=== PATIENT | female | born 1950 | race Hispanic/Latino ===

== ENCOUNTER 2019-12-11 08:18 | Observation (INO) | payer OTHER ==
[2019-12-09 13:35] VITALS: BP 155/61
[~2019-12-11] VITALS: Ht 160 cm; Wt 74.8 kg
[2019-12-11] VITALS (23 sets, daily range): BP systolic 118–167; BP diastolic 57–90
[~2019-12-11 08:18] MED LIST: MELO-106 PO
[2019-12-11] MEDS: VANCOMYCIN 1GM+NS 250ML 250 ML IV SCH ×3 (08:45→20:54)
[2019-12-11] MEDS: CEFAZOLIN SODIUM 1 GM VIAL IVP SCH ×3 (09:00→20:03)
[2019-12-11] MEDS ORDERED: ACETAMINOPHEN EXTRA STRENGTH 500 MG TABLET ONE (09:03)
[2019-12-11] MEDS ORDERED: LACTATED RINGERS 1000ML 1,000 ML IV ONE (09:03)
[2019-12-11] MEDS ORDERED: CELECOXIB 200 MG CAP ONE (09:03)
[2019-12-11] MEDS ORDERED: METOCLOPRAMIDE 10 MG/2 ML VIAL ONE (09:03)
[2019-12-11] MEDS ORDERED: KETOROLAC TROMETHAMINE 15MG/ML ONE (09:03)
[2019-12-11 09:11] LABS: APPEARANCE,URINE Cloudy (CLEAR); BILIRUBIN,URINE Negative (NEGATIVE); COLOR,URINE Yellow (YELLOW); GLUCOSE, URINE (UA) Negative (NEGATIVE); KETONES,URINE Negative (NEGATIVE); LEUKOCYTE ESTERASE ,URINE Moderate (NEGATIVE); NITRATE,URINE Negative (NEGATIVE); OCCULT BLOOD,URINE Trace (NEGATIVE); PROTEIN,URINE Negative (NEGATIVE)
[2019-12-11 09:33] LABS: BACTERIA,URINE Few /HPF (None Seen); MUCUS,URINE Few LPF (None Seen); RBC,URINE 0-1 /HPF (0-1); SQUAMOUS EPITHELIAL CELL,UR Moderate /HPF (0-2)
[2019-12-11 09:40] LABS: INR 0.95 (0.85-1.15)
[2019-12-11] MEDS ORDERED: ROPIVACAINE 0.5% 5MG/ML 30ML IJ ONE (09:50)
[2019-12-11] MEDS ORDERED: PROPOFOL 10 MG/ML 20ML VIAL IV ONE (09:54)
[2019-12-11] MEDS ORDERED: ROCURONIUM 10MG/1ML SYR 10 MG/ML ML ONE (09:54)
[2019-12-11] MEDS ORDERED: LIDOCAINE PF 2% 5ML ABBOJECT ONE (09:54)
[2019-12-11] MEDS ORDERED: DEXAMETHASONE SOD PHOSPHATE 10MG/ML 1ML VIAL ONE (09:54)
[2019-12-11] MEDS ORDERED: ONDANSETRON HCL 4 MG/2 ML VIAL ONE ×3 (09:54→15:54)
[2019-12-11] MEDS ORDERED: MIDAZOLAM HCL 1 MG/ML 2ML VIAL ONE (09:54)
[2019-12-11] MEDS ORDERED: FENTANYL CITRATE PF 50 MCG/1 ML 5ML AMP IV ONE (09:54)
[2019-12-11] MEDS ORDERED: LEVOFLOXACIN 500 MG/D5W 100 ML 100 ML ONE (10:00)
[2019-12-11] MEDS ORDERED: TRANEXAMIC ACID 1000MG/10ML ONE ×2 (12:14→15:31)
[2019-12-11] MEDS ORDERED: CEFAZOLIN SODIUM 1 GM VIAL ONE ×2 (12:43→12:49)
[2019-12-11] MEDS ORDERED: FENTANYL CITRATE PF 50 MCG/1 ML 2ML VIAL ONE (14:08)
[2019-12-11] MEDS ORDERED: GLYCOPYRROLATE 1 MG/5 ML SYRINGE ONE (14:36)
[2019-12-11] MEDS ORDERED: NEOSTIGMINE 5MG/5ML SYR IV ONE (14:37)
[2019-12-11] MEDS ORDERED: TRAMADOL HCL 50 MG TABLET PO PRN (15:00)
[2019-12-11] MEDS ORDERED: CALCIUM CARBONATE 500 MG TABLET PO PRN (15:00)
[2019-12-11] MEDS ORDERED: POTASSIUM CHLORIDE 20MEQ/100ML 100 ML IV PRN (15:00)
[2019-12-11] MEDS ORDERED: KETOROLAC TROMETHAMINE 15MG/ML IV PRN (15:00)
[2019-12-11] MEDS ORDERED: DiphenhydrAMINE HCL 50 MG/ML VIAL IVP PRN (15:00)
[2019-12-11] MEDS ORDERED: LIDOCAINE HCL-MPF 1% 2ML VIAL IV PRN (15:00)
[2019-12-11] MEDS ORDERED: TEMAZEPAM 15 MG CAPSULE PO PRN (15:00)
[2019-12-11] MEDS ORDERED: OXYCODONE HCL 5 MG TAB PO PRN ×2 (15:00)
[2019-12-11] MEDS: ACETAMINOPHEN EXTRA STRENGTH 500 MG TABLET PO SCH ×2 (15:00→23:25)
[2019-12-11] MEDS ORDERED: FERROUS FUMARATE 324 MG TABLET PO PRN (15:00)
[2019-12-11] MEDS ORDERED: ONDANSETRON HCL 4 MG/2 ML VIAL IVP PRN (15:00)
[2019-12-11] MEDS ORDERED: POTASSIUM CHLORIDE 10% ELIXIR 20 MEQ/15 ML UDCUP PO PRN (15:00)
[2019-12-11] MEDS ORDERED: MEPERIDINE-PF 25 MG/ML SYG ONE (15:40)
[2019-12-11] MEDS: SODIUM CHLORIDE 0.9% 1000ML 1,000 ML IV SCH (16:27)
--- NOTE | 2019-12-11 20:00 | NUR ---
PATIENT RECEIVED IN BED, AAOX3, NO ACUTE DISTRESS NOTED. POST LEFT TKA TODAY, JEANINE WRAP WITH CHRISTY DRESSING D/I. POC DISCUSSED WITH PATIENT. INCENTIVE SPIROMETRY ENCOURAGED WHILE AWAKE. PATIENT VOICED AGREEMENT. INSTRUCTED TO CALL FOR ASSISTANCE IF NEEDED. CALL HAN PLACED WITHIN REACH. WILL CONT TO MONITOR CLOSELY.
[2019-12-11] MEDS: CELECOXIB 200 MG CAP PO SCH (20:03)
[2019-12-11] MEDS: ASPIRIN 81MG TAB.CHEW PO SCH (20:03)
[2019-12-11] MEDS: PREGABALIN 25 MG CAP PO SCH (20:03)
[2019-12-11] MEDS: FAMOTIDINE 20MG TAB 20 MG TAB PO SCH (20:53)
[2019-12-12] MEDS: SODIUM CHLORIDE 0.9% 1000ML 1,000 ML IV SCH (00:55)
[2019-12-12 03:28] VITALS: BP 109/58
[2019-12-12 03:56] LABS: HEMATOCRIT 28.9 % (36-48); MEAN CORPUSCULAR HEMOGLOBIN 30.3 pg (27.0-33.0); MEAN CORPUSCULAR HGB CONC 33.6 g/dL (32.0-36.0); MEAN CORPUSCULAR VOLUME 90.3 fL (79-99); PLATELET COUNT (AUTO) 206 K/uL (130-400); RED CELL DISTRIBUTION WIDTH 12.9 % (11.0-15.5); WHITE BLOOD COUNT (AUTO) 10.6 K/uL (4.8-10.8)
[2019-12-12 04:08] LABS: CREATININE 0.9 mg/dL (0.5-1.5); POTASSIUM 3.7 mmol/L (3.5-5.1)
[2019-12-12] MEDS: POTASSIUM CHLORIDE 20 MEQ ERTAB PO PRN ×2 (04:22→06:26)
[2019-12-12] MEDS: CEFAZOLIN SODIUM 1 GM VIAL IVP SCH (04:22)
[2019-12-12] MEDS: ACETAMINOPHEN EXTRA STRENGTH 500 MG TABLET PO SCH ×2 (06:27→15:00)
[2019-12-12 07:49] VITALS: BP 117/58
[2019-12-12] MEDS: FAMOTIDINE 20MG TAB 20 MG TAB PO SCH (08:52)
[2019-12-12] MEDS: ASPIRIN 81MG TAB.CHEW PO SCH (08:52)
[2019-12-12] MEDS: PREGABALIN 25 MG CAP PO SCH (08:52)
[2019-12-12] MEDS: CELECOXIB 200 MG CAP PO SCH (08:53)
[2019-12-12] MEDS: VANCOMYCIN 1GM+NS 250ML 250 ML IV SCH (08:53)
[2019-12-12] MEDS ORDERED: LEVOFLOXACIN 500 MG TABLET PO SCH (09:00)
[2019-12-12] MEDS ORDERED: MELOXICAM 7.5 MG TABLET PO SCH (09:00)
[2019-12-12] MEDS ORDERED: POLYETHYLENE GLYCOL 3350 17 GM POWD.PACK PO SCH (09:00)
[2019-12-12 11:11] VITALS: BP 130/62
--- NOTE | 2019-12-12 11:25 | NUR ---
CM NOTE NEW ORDER FOR [facility], ODALYS OBTAINED. CLINICALS AND PAS[facility] FAXED AND RECEIVED. SITA CALLED, TO SEE PATIENT AND SUBMIT TO INSURANCE TODAY. WILL FOLLOW UP ACCORDINGLY.
[2019-12-12] MEDS ORDERED: ASPI-1005 PO (13:38)
[2019-12-12] MEDS ORDERED: HYDR-4457 PO (13:38)
[2019-12-12] MEDS ORDERED: MACR100 PO (13:43)
--- NOTE | 2019-12-12 15:21 | NUR ---
INITIAL Patient lives with granddaughter, Suzette Oviedo, [phone]. No home services. DME: walker with seat, shower chair. Patient is able to complete ADL's independently and drives. PCP is Dr. Rajan. Pharmacy is [facility] in [place]. DCP is home. Addendum: 12/12/19 at 1525 by NAREN HENLEY SS Amended: Links added.
--- NOTE | 2019-12-12 15:55 | NUR ---
CM NOTE WELL SITA AT [facility], AUTHORIZATION RECEIVED FOR [facility], PRIMARY NURSE, FER CASH, MADE AWARE.
--- NOTE | 2019-12-12 16:20 | NUR ---
[id number] patient signed MÉNDEZ Letter, I faxed MÉNDEZ Letter to [id number] and placed in chart under consent tab
--- NOTE | 2019-12-12 17:25 | NUR ---
INSTRUCTIONS DISCHARGE INSTRUCTIONS GIVEN TO PATIENT USING TEACH BACK. IV REMOVED WITH TIP INTACT. DIRECT PRESSURE APPLIED UNTIL BLEEDING CONTROLLED THEN SITE COVERED WITH GAUZE AND SECURED WITH A BAND-AID. F/U APPOINTMENT MADE. REPORT CALLED TO [facility] RESIDENTIAL STAFF. NEW PRESCRIPTIONS PLACED IN PACKET GOING TO RESIDENTIAL. ALL PRINTED INFORMATION AND MD INSTRUCTIONS PLACED IN PATIENT'S DISCHARGE PACKET. NO QUESTIONS OR CONCERNS VOICED. PENDING ARRIVAL OF [facility] FOR TRANSPORT.
[2019-12-14] MEDS ORDERED: BISACODYL 10 MG SUPP.RECT RC PRN (15:00)
== END 2019-12-12 18:14 ==
LOC: DAH 08:18 → DAHIP 08:19 → 4AH 16:14
PROVIDERS: ADMIT Orthopaedic Surgery; ATTEND Orthopaedic Surgery
DX: M17.12 Unilateral primary osteoarthritis, left knee (principal); M21.00 Valgus deformity, not elsewhere classified, unspecified site; I10 Essential (primary) hypertension; F32.9 Major depressive disorder, single episode, unspecified
CPT/HCPCS: 27447; 36415 ×2; 80048; 81001; 85027; 85610; 87077; 87088; 87186; 88304; 88311; 96365; 96366 ×2; 96375 ×2; 96376; 97039; 97116 ×2; 97161; 97530 ×2; A4213; A4215; A4221; A4222; A4223 ×2; A4600; A4649 ×3; A4663; A4930; A5120; A9272; C1776; G0378 ×17; G8978; G8979; G8980; G8981; G8982; G8983; J0690 ×5; J1100; J1885 ×2; J1956; J2001; J2175; J2250; J2405 ×4; J2704; J2710; J2765; J2795; J3010 ×2; J3370 ×3; J3490 ×3; J7120 ×2; 96374

== ENCOUNTER 2022-09-09 11:36 | Emergency (ER) | payer OTHER ==
[~2022-09-09] VITALS: Ht 157.5 cm; Wt 77.1 kg
[~2022-09-09 11:36] MED LIST changes: +ASPI-1005 PO; +HYDR-4457 PO; +MACR100 PO; -MELO-106 PO
[2022-09-09 12:21] LABS: BASOPHILS % (AUTO) 0.6 % (0.0-5.0); EOSINOPHILS % (AUTO) 3.2 % (0.0-8.0); HEMATOCRIT 36.2 % (36-48); MEAN CORPUSCULAR HEMOGLOBIN 30.4 pg (27.0-33.0); MEAN CORPUSCULAR HGB CONC 34.8 g/dL (32.0-36.0); MEAN CORPUSCULAR VOLUME 87.4 fL (79-99); MONOCYTES % (AUTO) 5.3 % (3.0-13.0); NEUTROPHILS % (AUTO) 69.5 % (40.0-77.0); PLATELET COUNT (AUTO) 261 K/uL (130-400); RED BLOOD CELL COUNT(AUTO) 4.14 MIL/uL (4.00-5.50); RED CELL DISTRIBUTION WIDTH 13.4 % (11.0-15.5); WHITE BLOOD COUNT (AUTO) 11.8 K/uL (4.8-10.8)
[2022-09-09] MEDS ORDERED: HYDROCODONE/ACETAMINOPHEN 10/325 MG TAB PO ONE (12:30)
[2022-09-09 12:33] LABS: CREATININE 0.8 mg/dL (0.5-1.5); POTASSIUM 3.2 mmol/L (3.5-5.1)
[2022-09-09 12:38] LABS: ALBUMIN 3.5 g/dL (3.5-5.0); CRP QUANTITATIVE 33.8 mg/L (0.00-9.0); TOTAL PROTEIN, SERUM 7.7 g/dL (6.0-8.3)
[2022-09-09 12:41] LABS: INR 0.94 (0.85-1.15); PROTHROMBIN TIME 10.3 SEC (9.6-11.6)
[2022-09-09 12:42] LABS: PARTIAL THROMBOPLASTIN TIME 25.1 SEC (26.3-35.5)
[2022-09-09] MEDS ORDERED: POTASSIUM BICARB/CIT AC 25 MEQ TABLET.EFF PO ONE (13:00)
[2022-09-09] MEDS ORDERED: NAPR-1180 PO (13:55)
[2022-09-09] MEDS ORDERED: CYCL10TA16 PO (13:55)
[2022-09-09 14:08] VITALS: BP 134/68
== END 2022-09-09 14:25 | disposition home or self-care (01) ==
LOC: EDH 11:36
DX: S39.012A Strain of muscle, fascia and tendon of lower back, initial encounter (principal); I10 Essential (primary) hypertension; E66.01 Morbid (severe) obesity due to excess calories; Z79.899 Other long term (current) drug therapy; Z98.890 Other specified postprocedural states; Z68.31 Body mass index [BMI] 31.0-31.9, adult; X58.XXXA Exposure to other specified factors, initial encounter; Y93.89 Activity, other specified; Y92.89 Other specified places as the place of occurrence of the external cause; Y99.8 Other external cause status
CPT/HCPCS: 36415; 71045; 73590; 80053; 85025; 85610; 85730; 86140; 93005; 93970